=== PATIENT | male | born 1965 | race Caucasian/White ===

== ENCOUNTER 2016-12-13 00:24 | Emergency (ER) | payer MEDICAID, OTHER, SELFPAY ==
[~2016-12-13] VITALS: Ht 188 cm; Wt 97.1 kg
[2016-12-13] MEDS ORDERED: LORazepam 2 MG/ML, 1ML IVPush ONE (01:00)
[2016-12-13] MEDS ORDERED: SODIUM CHLORIDE FLUSH 10ML SYR IVF ONE (01:00)
[2016-12-13] MEDS ORDERED: SODIUM CHLORIDE 0.9% 1,000ML IVBOLUS ONE (01:00)
[2016-12-13] MEDS ORDERED: LORazepam 2 MG/ML, 1ML ONE (01:10)
[2016-12-13 01:19] LABS: ASPARTATE AMINO TRANSFERASE 16 U/L (15-37); BLOOD UREA NITROGEN 16 mg/dL (7-18)
[2016-12-13 01:26] LABS: IS PT STATUS REG ER OR PRE ER? YES
[2016-12-13 01:30] LABS: DAU SCREEN DISCLAIMER
[2016-12-13] MEDS ORDERED: ASPIRIN 325 MG TABLET EC ONE (02:08)
[2016-12-13] MEDS ORDERED: ASPIRIN 325 MG TABLET PO ONE (02:30)
[2016-12-13 02:51] VITALS: BP 157/116
== END 2016-12-13 02:53 | disposition home or self-care (01) ==
LOC: ED 01:50
DX: R00.0 Tachycardia, unspecified (principal); F17.210 Nicotine dependence, cigarettes, uncomplicated; R53.1 Weakness; Z88.1 Allergy status to other antibiotic agents
CPT/HCPCS: 36415; 71010; 80053; 80307; 83880; 84484; 85025; 93005; 96361; 96374; 99285; J2060; J7030

== ENCOUNTER 2020-04-30 12:45 | Emergency (ER) | payer MEDICAID ==
[~2020-04-30] VITALS: Ht 185.4 cm; Wt 96.0 kg
[~2020-04-30 12:45] MED LIST: ALBU18HF BC; ALBU18HF INH; ATOR-2 PO; CLIN300C8 PO; CLON0.2T PO; CLOP75TA52 PO; FENO134C PO; FENO67CA PO; FURO20TA3 PO; HYDR-3343 PO; METO-99 PO; METO25TA35 PO; POTA10TA5 PO
[2020-04-30 13:38] VITALS: BP 115/74
--- NOTE | 2020-04-30 15:40 | NUR ---
PER PT, A MISCOMMUNICATION WITH TITLE I INSTRUCTIONAL ASSISTANT. LABS NOT DRAWN, TECH STATED PT REFUSED. THIS RN WENT TO SPEAK WITH PT. PT STATED HE DID NOT REFUSE, HE JUST WANTED TO KNOW WHY MORE LABS WERE BEING DRAWN WHEN HE WAS JUST HERE A WEEK AGO. CLARIFIED REASONS FOR LAB DRAW WITH PT. PT AGREEABLE TO HAVE LABS DRAWN. LAB NOTIFIED TO DRAW PT.
[2020-04-30 16:01] LABS: BASOPHILS % (AUTO) 1 % (0-1); EOSINOPHILS % (AUTO) 8 % (1-7); LYMPHOCYTES % (AUTO) 19 % (22-44); MEAN CORPUSCULAR HEMOGLOBIN 31.1 pg (27.5-34.5); MEAN CORPUSCULAR HGB CONC 32.5 g/dL (33.2-36.2); MEAN PLATELET VOLUME 7.4 fL (7.4-10.4); MONOCYTES % (AUTO) 10 % (2-9); NEUTROPHILS % (AUTO) 63 % (42-75); PLATELET COUNT 371 x10^3/uL (130-400); RED CELL DISTRIBUTION WIDTH 12.9 % (9.4-14.8)
--- NOTE | 2020-04-30 16:07 | NUR ---
BREAK RN: PT WATCHING TV, WARM BLANKET GIVEN, PT VERBALIZED NO NEEDS AT THIS TIME
[2020-04-30 16:08] LABS: ANION GAP 5 mmol/L (5-15); CALCIUM 9.4 mg/dL (8.5-10.1); CHLORIDE 113 mmol/L (98-107); CREATININE 1.11 mg/dL (0.7-1.3)
[2020-04-30 16:09] LABS: MD NO
--- NOTE | 2020-04-30 17:23 | NUR ---
Shannon RN note: Pt in room on his phone, yelling loudly, cussing. This RN entered pt room to offer assistance. Pt states to this RN "I'm tired of this shit I've been here seven times and no one will give me a de-worming pill like they did at [facility]. I'm leaving!" This RN offered to look into obtaining pt's dc paperwork so that he may fill the prescriptions. Pt reports he does not want the prescription from this doctor. Pt able to dress self fully and ambulate out of unit with steady gait.
== END 2020-04-30 17:28 | disposition home or self-care (01) ==
LOC: ED 14:27
DX: L03.113 Cellulitis of right upper limb (principal); L03.114 Cellulitis of left upper limb; L20.84 Intrinsic (allergic) eczema; I10 Essential (primary) hypertension; J44.9 Chronic obstructive pulmonary disease, unspecified; I25.2 Old myocardial infarction; F17.200 Nicotine dependence, unspecified, uncomplicated; Z90.49 Acquired absence of other specified parts of digestive tract
CPT/HCPCS: 36415; 80048; 85025; 87806; 99283; G0475